=== PATIENT | female | born 1950 | race Caucasian/White ===

== ENCOUNTER → 2017-06-25 | Day surgery (SDC) | payer MEDICARE ==
[~2017-06-25] MED LIST: ACET500T3 PO; CALC1TAB12 PO; CITA40TA4 PO; IOHEXOL 180 MG/ML 20 ML VIAL (for RAD DIAG) EPIDURAL ONE; LEVO.05 PO; LIDOCAINE HCL 1% 30 ML VIAL INFIL ONE; LISI10TA3 PO; METH10TA PO; MULTTAB67 PO; TRAZ50TA12 PO; TRIAMCINOLONE ACETONIDE 40 MG/ML VIAL NERV BLOCK ONE; ZANT150T2 PO; [UNRECOGNIZED DRUG - CODE] EPI
--- NOTE | 2017-06-25 09:08 | M6 ---
cc: Keshawn Cabrera MD DATE: 06/25/2017 DATE OF : 1950. PROCEDURE PERFORMED: Fluoroscopically-guided right S1 transforaminal epidural steroid injection. History and physical was completed and signed. Consent was signed. Procedure site was marked. Medications were listed and reconciled. Pain score was recorded. Allergies were noted. Time out was taken. Fluoroscopy time was recorded where applicable. Sedation was administered or directed by Dr. Cabrera. The patient was given oxygen. The patient was monitored by a registered nurse. Total procedure time was greater than 15 minutes. PROCEDURE NOTE: An IV was started, blood pressure cuff, pulse oximeter and EKG were applied. The patient was placed in the prone position on a Marcio table, sedated with small amounts of Versed and propofol titrated to effect. Vital signs were monitored and remained stable throughout the procedure. The patient remained responsive throughout the procedure. The lumbar area was scrubbed with antimicrobial solution, prepped with 10% Betadine solution, and draped with sterile drapes. Fluoroscopy was used in both the AP and lateral projections to clearly visualize the right S1 neural foramen. Then separate sterile 22 gauge, 3 1/2-inch Chiba needles were advanced under fluoroscopic guidance into the dorsal-most aspect of each foramen. There was negative aspiration for blood or CSF. There were no reported paresthesias by the patient. There was no washout of 2 mL of Omnipaque. Then after waiting approximately 60 seconds, the patient was slowly given 3 mL of 1% Xylocaine, 3 mL of Omnipaque and 60 mg of Kenalog at that location. Following this, the patient was taken to the recovery room with stable vital signs, neurologically intact. MD SADE Vasquez/LOKESH , 08:54 AM , 09:06 AM
--- NOTE | 2017-06-25 09:17 | M6 ---
cc: Keshawn Cabrera MD DATE: 06/25/2017 DATE OF : 1950. PROCEDURE: Epidurogram. PREPROCEDURE DIAGNOSIS: Right lumbar radiculopathy. POSTPROCEDURE DIAGNOSIS: Right lumbar radiculopathy. PROCEDURE NOTE: Ms. Jeffery is status post extensive lumbar and thoracic fusion with Lovelace rods extending from the sacrum up to the cervical vertebrae. She is having severe right lower extremity pain extending primarily into her right foot, particularly the heel of her foot. This is in what most closely resembles an S1 distribution. We are doing the epidurogram to determine if there is any obstruction to the flow of the medication, which would not be unusual in a patient who has had such extensive surgery. Images were saved to the patient's chart. Under fluoroscopy, a 3-1/2-inch, 22-gauge Chiba needle was advanced into the right S1 neural foramen. There was negative aspiration for blood or any other type of fluid. Omnipaque dye was injected and seen to clearly outline the S1 nerve and extend distally along the nerve. In addition, the dye spread cephalad up to the L5 level where it was seen to "pool" around the right L5 nerve root, but the medication did not spread any further in a cephalad direction indicating obstruction from the extensive surgical scarring. CONCLUSION: Right S1 radiculopathy with poor spread of medication to the central epidural space. MD SADE Vasquez/LOKESH , 08:58 AM , 09:16 AM
--- NOTE | 2017-06-25 12:41 | RADRPT ---
EXAM DATE/TIME: 06/25/2017 08:49 [facility] COMPARISON: No previous studies available for comparison. INDICATIONS : S1 Transforamen epidural steriod injection. Evaluate contrast on nerve root. MEDICAL HISTORY : None. SURGICAL HISTORY : spine sx for scoliosis ENCOUNTER: Initial ACUITY: 1 day PAIN SCORE: Non-responsive. LOCATION: Bilateral Sacrum FINDINGS: A single AP view of the sacrum has been obtained. Hardware is seen over the lumbar spine and upper sa gen. There appears to be a needle over the right pelvis with contrast extending along the right S1 n erve root region. CONCLUSION: Right S1 nerve root injection Thuan James MD on June 25, 2017 at 12:34 Board Certified Radiologist. This report was verified electronically.
== END | disposition home or self-care (01) ==
LOC: PHSDC 06:50
PROVIDERS: ATTEND Pain Medicine Interventional Pain Medicine
DX: M54.16 Radiculopathy, lumbar region (principal)
CPT/HCPCS: 64483; 72220; J3301; Q9965